=== PATIENT | male | born 1995 | race African-American/Black ===

== ENCOUNTER 2021-06-12 06:30 | Day surgery (SDC) | payer BC ==
[~2021-06-12 06:30] MED LIST: Lactated Ringers 1,000 ML IV SCH; Sodium Chloride 0.9% 10 ML SDV IV PRN; Sodium Chloride 0.9% 10 ML Syringe FLUSH PRN; Sodium Chloride 0.9% 2.5 ML Syringe FLUSH PRN
--- NOTE | 2021-06-12 07:15 | PCM.PREANE ---
Preanesthetic Assessment - Procedure Proposed Procedure: EGD - Anesthesia/Transfusion/Family Hx Anesthesia History: Prior Anesthesia Without Reaction Family History of Anesthesia Reaction: No Transfusion History: No Prior Transfusion(s) - Review of Systems General: No Symptoms Pulmonary: No Symptoms (Likely MARY) Cardiovascular: No Symptoms (HTN Untxd) Gastrointestinal: No Symptoms (GERD Untx'd) Neurological: No Symptoms Other: Reports: Liver Problems (fatty liver) - Physical Assessment NPO Status Date: 06/11/21 NPO Status Time: 22:00 Vital Signs: Last Vital Signs Temp 96.6 F L 06/12/21 06:40 Pulse 80 06/12/21 06:40 Resp 16 06/12/21 06:40 BP 142/90 H 06/12/21 06:40 Pulse Ox 97 06/12/21 06:40 Height: 5 ft 11 in Weight: 166.015 kg ASA Class: 3 Mental Status: Alert & Oriented x3 Airway Class: Mallampati = 3 Dentition: Reports: Normal Dentition Thyro-Mental Finger Breadths: 3 Mouth Opening Finger Breadths: 3 ROM/Head Extension: Full Lungs: Clear to Auscultation, Normal Respiratory Effort Cardiovascular: Regular Rate, Regular Rhythm - Allergies Allergies/Adverse Reactions: Allergies Allergy/AdvReac Type Severity Reaction Status Date / Time sulfamethoxazole Allergy Itching Verified 06/09/21 09:57 [From Bactrim] trimethoprim [From Bactrim] Allergy Itching Verified 06/09/21 09:57 - Acknowledgements Anesthesia Type Planned: General Anesthesia Pt an Appropriate Candidate for the Planned Anesthesia: Yes Alternatives and Risks of Anesthesia Discussed w Pt/Guardian: Yes Pt/Guardian Understands and Agrees with Anesthesia Plan: Yes PreAnesthesia Questionnaire HEENT History: Reports: Other (See Below) Other HEENT History: wears glasses Cardiovascular History: Reports: Hypertension Other Cardiovascular History: has a prescription for Lisinopril but says he hasn't picked it up yet Respiratory History: Reports: Asthma Other Respiratory History: only uses inhaler PRN Gastrointestinal History: Reports: GERD Other Gastrointestinal History: takes Omeprazole PRN Genitourinary History: Reports: None Musculoskeletal History: Reports: Arthritis Neurological History: Reports: Concussion Psychiatric History: Reports: None Endocrine/Metabolic History: Reports: Diabetes, Type II, Obesity/BMI 30+ Other Endocrine/Metabolic History: does not take any medications for diabetes Hematologic History: Reports: None Immunologic History: Reports: None Oncologic (Cancer) History: Reports: None Dermatologic History: Reports: None - Past Surgical History Head Surgeries/Procedures: Reports: None HEENT Surgical History: Reports: None Cardiovascular Surgical History: Reports: None Respiratory Surgical History: Reports: None GI Surgical History: Reports: None Male Surgical History: Reports: None Neurological Surgical History: Reports: None - SUBSTANCE USE Tobacco Use Status *Q: Never Tobacco User Tobacco Use Within Last Twelve Months: No Recreational Drug Use History: No - HOME MEDS Home Medications: Home Meds Albuterol Sulfate 2.5 mg NEB Q4H PRN 06/09/21 [History] Fluticasone Propionate [Flonase Allergy Relief] 2 spray NASBOTH DAILY PRN 06/09/21 [History] Fluticasone/Salmeterol [Advair 100-50] 1 puff INH BID 06/09/21 [History] Omeprazole 40 mg PO DAILY 06/09/21 [History] - CURRENT (IN HOUSE) MEDS Current Meds: Current Medications Lactated Ringer's (Ringers, Lactated) 1,000 mls @ 125 mls/hr IV ASDIRECTED DAISY Sodium Chloride (Sodium Chloride 0.9% 10 Ml Sdv) 10 ml IV ASDIRECTED PRN PRN Reason: IV Use Sodium Chloride (Sodium Chloride 0.9% 10 Ml Syringe) 10 ml FLUSH ASDIRECTED PRN PRN Reason: Keep Vein Open Sodium Chloride (Sodium Chloride 0.9% 2.5 Ml Syringe) 2.5 ml FLUSH ASDIRECTED PRN PRN Reason: Keep Vein Open
[2021-06-12] MEDS ORDERED: Midazolam 1 MG/ML 2 ML SDV ONE (07:24)
[2021-06-12] MEDS ORDERED: Propofol 200 MG/20 ML SDV ONE ×2 (07:24→07:31)
[2021-06-12] MEDS ORDERED: Lidocaine 2% 5 ML SDV ONE (07:24)
[2021-06-12] MEDS ORDERED: Glycopyrrolate 0.2 MG/ML SDV ONE (07:24)
--- NOTE | 2021-06-12 08:26 | PCM.POSTAN ---
POST ANESTHESIA ASSESSMENT - MENTAL STATUS Mental Status: Alert, Oriented - VITAL SIGNS Vital Signs: Last Vital Signs Temp 96.6 F L 06/12/21 06:40 Pulse 99 06/12/21 08:20 Resp 10 L 06/12/21 08:20 BP 140/55 L 06/12/21 08:20 Pulse Ox 94 L 06/12/21 08:20 - RESPIRATORY Respiratory Status: Respiratory Rate WNL, Airway Patent, O2 Saturation Stable - CARDIOVASCULAR CV Status: Pulse Rate WNL, Blood Pressure Stable - GASTROINTESTINAL GI Status: No Symptoms - PAIN Pain Score: 0 - POST OP HYDRATION Hydration Status: Adequate & Stable
--- NOTE | 2021-06-12 08:28 | PCM48HPAN ---
Post Anesthesia Note - EVALUATION WITHIN 48HRS OF ANESTHETIC Vital Signs in Normal Range: Yes Patient Participated in Evaluation: Yes Respiratory Function Stable: Yes Airway Patent: Yes Cardiovascular Function Stable: Yes Hydration Status Stable: Yes Pain Control Satisfactory: Yes Nausea and Vomiting Control Satisfactory: Yes Mental Status Recovered: Yes Vital Signs: Last Vital Signs Temp 96.6 F L 06/12/21 06:40 Pulse 99 06/12/21 08:20 Resp 10 L 06/12/21 08:20 BP 140/55 L 06/12/21 08:20 Pulse Ox 94 L 06/12/21 08:20 - COMMENTS/OBSERVATIONS Free Text/Narrative:: Pt doing well post-op. VSS. No apparent anesthetic complications. Dr. Preston Martino
--- NOTE | 2021-06-12 09:02 | PCM.OPNOTE ---
- General Post-Op/Procedure Note Date of Surgery/Procedure: 06/12/21 Operative Procedure(s): Diagnostic EGD Findings: Normal appearing EGD Pre Op Diagnosis: GERD Post-Op Diagnosis: same Anesthesia Technique: MAC Primary Surgeon: Cheyenne Anderson Condition: Stable Free Text/Narrative:: Intake & Output 06/11/21 06/12/21 06/12/21 22:59 06:59 14:59 Intake Total 550 Balance 550
--- NOTE | 2021-06-13 23:19 | OR ---
SURGEON: CHEYENNE ANDERSON MD DATE OF PROCEDURE: 06/12/2021 PREOPERATIVE DIAGNOSIS: Gastroesophageal reflux disease. POSTOPERATIVE DIAGNOSIS: Gastroesophageal reflux disease. PROCEDURE PERFORMED: Diagnostic esophagogastroduodenoscopy. PRIMARY SURGEON: Cheyenne Anderson MD ANESTHESIA: MAC. INSTRUMENT USED: Olympus endoscope. EXTENT OF EXAM: To the second portion of duodenum. PREPARATION: Good. LIMITATIONS: None. INDICATIONS FOR EXAMINATION: The patient is a 25-year-old male who presented to my clinic with ongoing heartburn symptoms. I explained the need for diagnostic EGD. I explained the procedure, expected perioperative course, and the risks. He verbalized understanding and wishes to proceed. PROCEDURE IN DETAIL: Patient was brought in to the endoscopy suite and placed in a beach chair position. A time-out was completed verifying the patient's name, age, date of , allergies, and procedure to be performed. A bite block was placed in the patient's mouth. Monitored anesthesia care was induced and continuous oxygen was provided via nasal cannula throughout the procedure. After adequate sedation was achieved, a well-lubricated endoscope was placed in the patient's mouth and advanced under direct visualization to the second portion of the duodenum. This appeared normal and a photograph was taken. The scope was then fully withdrawn while examining the color, texture, anatomy, and integrity of the mucosa of the upper GI tract. The duodenum appeared normal. The scope was brought into the stomach and a photograph was taken of the pylorus and GE junction. Both appeared grossly normal. Biopsies were taken of the gastric antrum, body, and fundus and sent for histologic review and H pylori testing. The scope was then brought into the distal esophagus. A photograph was taken of the Z-line. The Z-line appeared grossly normal. There was no evidence of distal esophagitis or ulceration. A biopsy was taken 1 cm above the Z-line and sent to Pathology for histologic review. The remainder of the esophagus was free of pathology. The scope was removed and the procedure terminated. The patient tolerated it well and was transferred to the PACU in stable condition. ENDOSCOPIC DIAGNOSIS: Gastroesophageal reflux disease. RECOMMENDATION: We will follow up with the patient in two weeks in clinic regarding his biopsy results. EHSAN / EUSEBIO /[id number]
== END 2021-06-12 09:30 | disposition home or self-care (01) ==
LOC: MW.SDS 06:30
PROVIDERS: ATTEND Surgery
DX: K29.50 Unspecified chronic gastritis without bleeding (principal); K21.9 Gastro-esophageal reflux disease without esophagitis; E66.01 Morbid (severe) obesity due to excess calories; E11.9 Type 2 diabetes mellitus without complications; I10 Essential (primary) hypertension; Z88.8 Allergy status to other drugs, medicaments and biological substances; Z79.899 Other long term (current) drug therapy; Z68.43 Body mass index [BMI] 50.0-59.9, adult; Z88.2 Allergy status to sulfonamides
CPT/HCPCS: 43239; J2250; J2704; J3490; J7120